=== PATIENT | female | born 1975 | race Caucasian/White ===

== ENCOUNTER 2018-04-15 02:23 | Emergency (ER) | payer OTHER ==
[2018-04-15] MEDS ORDERED: NA CHLORIDE 0.9% 1,000 ML ONE (03:13)
[2018-04-15 03:47] LABS: BUN Blood Urea Nitrogen 10 mg/dL (6-20); Bicarbonate 27 mEq/L (21-31); Glucose Level 343 mg/dL (65-120); Potassium 3.7 mEq/L (3.6-5.0); Sodium Level 134 mEq/L (135-145)
[2018-04-15 03:49] LABS: Absolute Lymphocytes (CBC) 3.2 K/uL (0.7-4.9); Absolute Monocytes 0.8 K/uL (0.1-1.3); Absolute Neutrophil 8.1 K/uL (1.8-8.0); Basophils % 0.5 % (0-1.3); Eosinophils % 3.8 % (0-4.4); Hematocrit 42.3 % (36.0-45.0); Lymphocytes % 25.5 % (15.3-44.8); MCH 28.2 pg (27.0-35.0); MCV 82.6 fL (80-100); MPV 8.1 fL (7.6-11.3); Monocytes % 6.3 % (3.3-12.3); RBC Red Blood Cell Count 5.13 M/uL (3.86-4.86)
--- NOTE | 2018-04-15 04:34 | ER ---
Nurse's Notes [facility] Name: Geeta Chávez Age: 42 yrs Sex: Female : 1975 Arrival Date: 04/15/2018 Time: 02:25 Bed 16 Private MD: Diagnosis: Palpitations Presentation: 04/15 02:30 Presenting complaint: Patient states: that tonight she had 3 mixed drinks and 1 shot fc and she rarely drinks. She then shortly after that started to have chest pain, epigastric pain, nausea, shortness of breath and irregular heart rate. States that she became hot and flushed. Transition of care: patient was not received from another setting of care. Onset of symptoms was April 15, 2018. Risk Assessment: Do you want to hurt yourself or someone else? Patient reports no desire to harm self or others. Initial Sepsis Screen: Does the patient meet any 2 criteria? HR > 90 bpm. Yes Does the patient have a suspected source of infection? No. Patient's initial sepsis screen is negative. Care prior to arrival: None. 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 - Social history:: Smoking status: Patient/guardian denies using tobacco, Patient uses alcohol, but reports only rare drinking. Patient/guardian denies using street drugs. - Ebola Screening: : Patient negative for fever greater than or equal to 101.5 degrees Fahrenheit, and additional compatible Ebola Virus Disease symptoms Patient denies exposure to infectious person Patient denies travel to an Ebola-affected area in the 21 days before illness onset. - Family history:: not pertinent. - Hospitalizations: : No recent hospitalization is reported. Screenin:44 Abuse screen: Denies threats or abuse. Nutritional screening: No deficits noted. fc Tuberculosis screening: No symptoms or risk factors identified. Fall Risk None identified. Assessment: 03:20 General: Appears in no apparent distress. Behavior is calm, cooperative, appropriate ea for age. Pain: Denies pain. Neuro: Level of Consciousness is awake, alert, obeys commands, Oriented to person, place, time, situation. Cardiovascular: Heart tones S1 S2 present Patient's skin is warm and dry. Respiratory: Airway is patent Respiratory effort is even, unlabored, Respiratory pattern is regular, symmetrical, Breath sounds are clear bilaterally. GI: No signs and/or symptoms were reported involving the gastrointestinal system. Abdomen is obese. : No signs and/or symptoms were reported regarding the genitourinary system. EENT: No signs and/or symptoms were reported regarding the EENT system. Derm: Skin is pink, warm \T\ dry. Musculoskeletal: Circulation, motion, and sensation intact. 04:50 Reassessment: Patient and/or family updated on plan of care and expected duration. Pain ea level reassessed. Patient is alert, oriented x 3, equal unlabored respirations, skin warm/dry/pink. Discharge instructions given to patient, verbalized the understanding of instruction. Patient states feeling better. Patient states symptoms have improved. Vital Signs: 02:30 BP 162 / 112; Pulse 96; Resp 20; Temp 98.2(O); Pulse Ox 100% on R/A; Weight 113.85 kg fc (R); Height 5 ft. 6 in. (167.64 cm) (R); Pain 7/10; 03:13 BP 130 / 77; Pulse 82; Resp 18; Pulse Ox 99% on R/A; ea 04:58 BP 120 / 70; Pulse 70; Resp 18; Temp 98.7; Pulse Ox 99% ; ea 02:30 Body Mass Index 40.51 (113.85 kg, 167.64 cm) ED Course: 02:25 Patient arrived in ED. ds1 02:30 Arm band placed on Patient placed in an exam room, on a stretcher. fc 02:30 Patient has correct armband on for positive identification. Placed in gown. Bed in low fc position. Call light in reach. quality assurance monitor final on. Pulse ox on. NIBP on. 02:30 No provider procedures requiring assistance completed. fc 02:38 Aidan Quintero MD is Attending Physician. rn 02:42 Triage completed. fc 03:00 Inserted saline lock: 20 gauge in left forearm, using aseptic technique. Blood ea collected. 03:12 Jaquelin Cody, RN is Primary Nurse. ea 03:20 Patient maintains SpO2 saturation greater than 95% on room air. ea 04:55 IV discontinued, intact, bleeding controlled, No redness/swelling at site. Pressure ea dressing applied. Administered Medications: 03:23 Drug: NS 0.9% 1000 ml Route: IV; Rate: 1000 ml; Site: left forearm; ea 04:58 Follow up: Response: No adverse reaction; IV Status: Completed infusion ea Outcome: 04:33 Discharge ordered by . rn 05:14 Discharged to home ambulatory, with significant other. ea 05:14 Condition: improved 05:14 Discharge instructions given to patient, Instructed on discharge instructions, follow up and referral plans. Demonstrated understanding of instructions, follow-up care. 05:16 Patient left the ED. ea Signatures: Danita Bear RN RN Staci Pritchett ds1 Aidan Quintero MD MD rn Antunez, Elena, RN RN ea
--- NOTE | 2018-04-15 04:34 | EDPHYS ---
Physician Documentation [facility] Name: Geeta Chávez Age: 42 yrs Sex: Female : 1975 Arrival Date: 04/15/2018 Time: 02:25 Bed 16 Private MD: ED Physician Aidan Quintero HPI: 04/15 03:00 This 42 yrs old Female presents to ER via Ambulatory with complaints of rn Irregular Pulse. 03:00 The patient presents with a history of heart racing. Context: The symptoms occur at rn rest. Onset: The symptoms/episode began/occurred just prior to arrival. Duration: The patient or guardian reports a single episode, that lasted 2 hour(s). Modifying factors: The symptoms are aggravated by alcohol. Severity of symptoms: At their worst the symptoms were mild in the emergency department the symptoms are unchanged. The patient has experienced similar episodes in the past. Reports doesn't normally drink ETOH, had a few margheritas and a shot, felt palpitations not as bad as her SVT in past, didn't take her anxiety medication today, has had thyroid checked in past and has been normal. Symptoms have improved on their own, patient reports checked HR and highest was in 130s. 96 here. No chest pain. Also reports epigastric pain that radiates to chest, also got worse after the ETOH. . 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 - Social history:: Smoking status: Patient/guardian denies using tobacco, Patient uses alcohol, but reports only rare drinking. Patient/guardian denies using street drugs. - Ebola Screening: : Patient negative for fever greater than or equal to 101.5 degrees Fahrenheit, and additional compatible Ebola Virus Disease symptoms Patient denies exposure to infectious person Patient denies travel to an Ebola-affected area in the 21 days before illness onset. - Family history:: not pertinent. - Hospitalizations: : No recent hospitalization is reported. ROS: 03:00 Constitutional: Negative for fever, chills, and weight loss, Eyes: Negative for injury, rn pain, redness, and discharge, Neck: Negative for injury, pain, and swelling, Cardiovascular: Negative for edema Respiratory: Negative for shortness of breath, cough, wheezing, and pleuritic chest pain, Abdomen/GI: Negative for nausea, vomiting, diarrhea, and constipation, Back: Negative for injury and pain, MS/Extremity: Negative for injury and deformity, Skin: Negative for injury, rash, and discoloration, Neuro: Negative for headache, weakness, numbness, tingling, and seizure. Exam: 03:00 Constitutional: This is a well developed, well nourished patient who is awake, alert, rn and in no acute distress. Head/Face: Normocephalic, atraumatic. Eyes: Pupils equal round and reactive to light, extra-ocular motions intact. Lids and lashes normal. Conjunctiva and sclera are non-icteric and not injected. Cornea within normal limits. Periorbital areas with no swelling, redness, or edema. Cardiovascular: Regular rate and rhythm with a normal S1 and S2. No gallops, murmurs, or rubs. Normal PMI, no JVD. No pulse deficits. Respiratory: Lungs have equal breath sounds bilaterally, clear to auscultation and percussion. No rales, rhonchi or wheezes noted. No increased work of breathing, no retractions or nasal flaring. Abdomen/GI: Soft, non-tender, with normal bowel sounds. No distension or tympany. No guarding or rebound. No evidence of tenderness throughout. MS/ Extremity: Pulses equal, no cyanosis. Neurovascular intact. Full, normal range of motion. Equal circumference. Neuro: Awake and alert, GCS 15, oriented to person, place, time, and situation. Motor strength 5/5 in all extremities. Sensory grossly intact. Vital Signs: 02:30 BP 162 / 112; Pulse 96; Resp 20; Temp 98.2(O); Pulse Ox 100% on R/A; Weight 113.85 kg fc (R); Height 5 ft. 6 in. (167.64 cm) (R); Pain 7/10; 03:13 BP 130 / 77; Pulse 82; Resp 18; Pulse Ox 99% on R/A; ea 04:58 BP 120 / 70; Pulse 70; Resp 18; Temp 98.7; Pulse Ox 99% ; ea 02:30 Body Mass Index 40.51 (113.85 kg, 167.64 cm) fc MDM: 02:38 Patient medically screened. rn 04:32 Differential diagnosis: arrythmia, dehydration, stress disorder, alcohol related rn illness, palpitations. Data reviewed: vital signs, nurses notes, lab test result(s), EKG, and as a result, I will discharge patient. Counseling: I had a detailed discussion with the patient and/or guardian regarding: the historical points, exam findings, and any diagnostic results supporting the discharge/admit diagnosis, lab results, the need for outpatient follow up, to return to the emergency department if symptoms worsen or persist or if there are any questions or concerns that arise at home. Response to treatment: the patient's condition has returned to base line, patient is well hydrated. and as a result, I will discharge patient. Special discussion: I discussed with the patient/guardian in detail that at this point there is no indication for admission to the hospital. It is understood, however, that if the symptoms persist or worsen the patient needs to return immediately for re-evaluation. 04/15 02:50 Order name: CBC with Diff; Complete Time: 04:02 rn 04/15 02:50 Order name: Basic Metabolic Panel; Complete Time: 04:02 rn 04/15 02:50 Order name: IV Start; Complete Time: 03:13 rn 04/15 02:50 Order name: Troponin (emerg Dept Use Only); Complete Time: 04:32 rn 04/15 02:50 Order name: EKG; Complete Time: 02:51 rn 04/15 02:50 Order name: EKG - Nurse/Tech; Complete Time: 03:30 rn 04/15 02:51 Order name: Cardiac monitoring; Complete Time: 03:30 rn Administered Medications: 03:23 Drug: NS 0.9% 1000 ml Route: IV; Rate: 1000 ml; Site: left forearm; ea 04:58 Follow up: Response: No adverse reaction; IV Status: Completed infusion ea Disposition: 04/15/18 04:33 Discharged to Home. Impression: Palpitations. - Condition is Stable. - Discharge Instructions: Palpitations. - Medication Reconciliation Form, Thank You Letter, Antibiotic Education, Prescription Opioid Use form. - Follow up: Private Physician; When: As needed; Reason: Recheck today's complaints, Re-evaluation by your physician. - Problem is new. - Symptoms have improved. Signatures: Dispatcher [employer] EDND Danita Bear RN RN fc Nieto, Roman, MD MD rn Antunez, Elena, RN RN ea Corrections: (The following items were deleted from the chart) 05:16 04:33 04/15/2018 04:33 Discharged to Home. Impression: Palpitations. Condition is ea Stable. Forms are Medication Reconciliation Form, Thank You Letter, Antibiotic Education, Prescription Opioid Use. Follow up: Private Physician; When: As needed; Reason: Recheck today's complaints, Re-evaluation by your physician. Problem is new. Symptoms have improved. rn
--- NOTE | 2018-04-15 09:09 | EKG ---
Test Date: 2018-04-15 Test Time: 02:48:33 Washer Engineer: AMILCAR MEASUREMENT RESULTS: Intervals: Rate: 78 MI: 142 QRSD: 86 QT: 388 QTc: 442 [place]: P: 43 MI: 142 QRS: 20 T: 51 INTERPRETIVE STATEMENTS: Sinus rhythm with marked sinus arrhythmia Otherwise normal ECG No previous ECG available for comparison Electronically Signed On 04-15-18 09:08:23 CDT by Everardo Tiwari
== END 2018-04-15 05:16 | disposition home or self-care (01) ==
LOC: ER 02:23
DX: R00.2 Palpitations (principal); E11.9 Type 2 diabetes mellitus without complications; Z88.2 Allergy status to sulfonamides; Z88.8 Allergy status to other drugs, medicaments and biological substances; Z88.6 Allergy status to analgesic agent; Z91.040 Latex allergy status; Z79.4 Long term (current) use of insulin
CPT/HCPCS: 36415; 80048; 84484; 85025; 93005; 96360; 96361; 99285; J7030